=== PATIENT | male | born 1970 | race Caucasian/White ===

== ENCOUNTER 2016-12-18 12:00 | Emergency (ER) | payer OTHER ==
[~2016-12-18] VITALS: Ht 175.3 cm; Wt 93.0 kg
[2016-12-18 12:06] VITALS: BP 135/83; PULSE 89; RESP 16; TEMP 97.8; O2SAT 98
[2016-12-18] MEDS ORDERED: VALT500T PO (12:12)
[2016-12-18] MEDS ORDERED: ALBUAER3 INH (12:20)
[2016-12-18] MEDS ORDERED: BENZ100 PO (12:20)
[2016-12-18] MEDS ORDERED: AZIT250T3 PO (12:20)
--- NOTE | 2016-12-18 12:27 | PD ---
HPI Chief Complaint: Cold / Flu Symptoms Time Seen by Provider: 12:21 Travel History International Travel<30 days: No Contact w/Intl Traveler<30days: No Traveled to known affect area: No History of Present Illness HPI Patient's 46-year-old male with chief complaint of "chest cold". He states he has had nasal congestion, rhinorrhea, sneezing, dry throat, hoarseness and cough for 6 days. Progressively worsened over the last several days. He has a small amount of yellow-green sputum production. He has some chest tightness with coughing but denies corey chest pain. Endorses mild wheezing. Denies history of asthma or tobacco use. He denies fevers or myalgias. No known sick contacts. He states he has had bronchitis 3 or 4 times the last several years and that this is similar. PFS Past Medical History Medical History: Denies Significant Hx Diminished Hearing: No Immunizations Current: Yes Tetanus Vaccination: < 5 Years Influenza Vaccination: No Past Surgical History Surgical History: No Previous Surgery Social History Alcohol Use: Yes (weekends) Tobacco Use: No Substance Use: No Allergies-Medications (Allergen,Severity, Reaction): Coded Allergies: No Known Allergies (Unverified , 12/18/16) Reported Meds & Prescriptions Reported Meds & Active Scripts Active Tessalon Perles (Benzonatate) 100 Mg Cap 100-200 Mg PO TID PRN Proair Hfa 8.5 GM Inh (Albuterol Sulfate) 90 Mcg/Act Aer 2 Puff INH Q4-6H PRN 108 mcg/actuation Azithromycin 250 Mg Tab 250 Mg PO DIRECTED Take 2 tabs (500 mg) on day 1 then 1 tab daily x 4 days. Reported Valtrex (Valacyclovir HCl) 500 Mg Tab 500 Mg PO BID Review of Systems Except as stated in HPI: all other systems reviewed are Neg Physical Exam Narrative GENERAL: Well-developed and well-nourished adult male in no acute distress. SKIN: Warm and dry. Good turgor without tenting. HEAD: Normocephalic and atraumatic. EYES: PERRL bilaterally, 5mm. EOMI bilaterally. No injection or icterus present. No proptosis. Lids without edema or erythema. ENT: Bilateral ear canals are non-edematous/non-erythematous without otorrhea. Bilateral TMs have are dull but with intact landmarks and without distortion, perforation, air-fluid level or erythema. Nasal mucosa erythematous without discharge, septum intact and midline. Buccal mucosa pink and moist. Oropharynx free of erythema, tonsillar hypertrophy, masses, swelling, asymmetry and exudates. Uvula midline and airway patent. NECK: Supple, no meningeal signs. Trachea midline, no JVD. No cervical or facial lymphadenopathy. CARDIOVASCULAR: Regular rate and rhythm without murmurs, rubs, clicks or gallops. Radial and posterior tibial pulses 2+ bilaterally. No pedal edema. Negative bilateral Homans sign. RESPIRATORY: Clear to auscultation bilaterally with symmetrical rise and fall, no distress or use of accessory muscles. MUSCULOSKELETAL: No gait disturbances. Patient freely moving all four extremities spontaneously. Extremities without clubbing, cyanosis, or edema. No obvious deformities. NEUROLOGIC: CN II-XII grossly intact. Awake and alert. Motor grossly within normal limits. Normal speech. PSYCHIATRIC: Appropriate mood and affect; insight and judgment normal. Data Data Last Documented VS Vital Signs Date Time Temp Pulse Resp B/P Pulse Ox O2 Delivery O2 Flow Rate FiO2 12/18/16 12:06 97.8 89 16 135/83 98 MDM Medical Decision Making Medical Screen Exam Complete: Yes Emergency Medical Condition: Yes Differential Diagnosis Bronchitis versus pharyngitis versus pharyngitis versus viral syndrome versus common cold versus pneumonia unlikely Narrative Course Patient is a 46-year-old otherwise healthy male with history and physical suggestive of bronchitis. As he is on day 6 and feels like symptoms are worsening and not improving or may be a component. He has no increased work of breathing. Lungs are clear to auscultation. Vitals are stable and reassuring. He is afebrile and nontoxic appearing. Patient will be given azithromycin, albuterol and Tessalon Perles and recommend follow-up with PCP in one to 2 days.See discharge paperwork for further instructions. The plan was discussed with the patient who acknowledged their understanding and agreement. Reinforced the follow-up with primary care is critically important. Patient instructed on emergent conditions that should prompt return to ED. Diagnosis Primary Impression: Acute bronchitis Qualified Code: J20.9 - Acute bronchitis, unspecified organism Patient Instructions: Acute Bronchitis (ED), General Instructions Additional Instructions: Take medication as prescribed OTC Mucinex, cough suppressants, and decongestants as needed OTC Tylenol or Ibuprofen for fever and discomfort Drink lots of fluid to help clear mucous/drainage and stay hydrated Follow up with PCP in 2 days Return to the ED for any acute worsening of symptoms Med/Other Pt SpecificInfo: Prescription(s) given Scripts Benzonatate (Tessalon Perles)100 Mg [id number] Mg PO TID PRN (COUGH) #20 CAP Prov:Tomy Neal MD 12/18/16 Albuterol 8.5 GM Inh (Proair Hfa 8.5 GM Inh)90 Mcg/Act Aer2 Puff INH Q4-6H PRN ( SHORTNESS OF BREATH) #1 INHALER 108 mcg/actuation Prov:Tomy Neal MD 12/18/16 Azithromycin 250 Mg [id number] Mg PO DIRECTED #6 TAB Take 2 tabs (500 mg) on day 1 then 1 tab daily x 4 days. Prov:Tomy Neal MD 12/18/16 Disposition: 01 DISCHARGE HOME Condition: Stable Alfred Forrest III Dec 18, 2016 12:27
== END 2016-12-18 12:40 | disposition home or self-care (01) ==
LOC: PHEFT 12:00
DX: J20.9 Acute bronchitis, unspecified (principal); R09.81 Nasal congestion; R49.0 Dysphonia
CPT/HCPCS: 99283